=== PATIENT | female | born 1995 | race Two or more races ===

== ENCOUNTER 2022-02-24 01:46 | Emergency (ER) | payer OTHER ==
[~2022-02-24] VITALS: Ht 172.7 cm; Wt 65.8 kg
[2022-02-24] MEDS ORDERED: CEFADROXIL500 MG PO (06:56)
== END 2022-02-24 08:16 | disposition home or self-care (01) ==
LOC: ER 01:46
DX: N39.0 Urinary tract infection, site not specified (principal)